=== PATIENT | female | born 1985 | race Caucasian/White ===

== ENCOUNTER 2021-03-28 01:46 | Day surgery (SDC) | payer OTHER, BC, SELFPAY ==
[2021-03-20 15:55] VITALS: BMI 28.4
[2021-03-28 10:02] VITALS: BP 109/74; PULSE 65; RESP 18; TEMP 36.7; O2SAT 99; BMI 28.8
[2021-03-28] MEDS: LACTATED RINGERS 1,000 ML 150 ML IV CONT (10:08)
--- NOTE | 2021-03-28 10:19 | WPDGICN ---
GI Consult Note Consult date/time: 03/28/21 10:19 HPI: Reason for visit is colonoscopy. This very pleasant lady seen in consultation at the request of the Primary care. Family history of colorectal cancer. Recommendation: Colonoscopy. History: This very pleasant lady has a family history of colorectal cancer. The patient's mother had colorectal cancer at age 48 and a maternal aunt had colorectal cancer. The age is unknown. She is here for screening colonoscopy. Her GI review systems unremarkable. Physical examination: General: very pleasant patient in no acute distress. HEENT: Head was normocephalic sclerae is clear mouth without masses neck was supple. Heart: Rate rhythm regular without S3 or S4. Lungs: CTA. Abdomen: Soft with no guarding or rigidity. Bowel sounds were active. Neurologic: Cranial nerves 2 through 12 intact. No focal defects. No clonus. Musculoskeletal system: Revealed no joint tenderness or swelling no muscle atrophy. Extremities: Reveal no significant edema. Skin: Warm and dry with normal turgor. Mental status: intact. Patient is alert and oriented. Review of Systems Review of Systems: All systems reviewed & are unremarkable except as noted in HPI and below PMFSH Social History Social History Years smoked: 20 Smoking status: Current every day smoker Alcohol intake: current Alcohol use details: rarely Living arrangements: with family Spiritual care concerns: No Meds Home Medications and Allergies Home Medications Medication Instructions Recorded Confirmed Type No Home Medications 03/20/21 03/20/21 History Allergies Allergy/AdvReac Type Severity Reaction Status Date / Time No Known Allergies Allergy Verified 03/28/21 10:02 Vital Signs Vital Signs - 24 hr 03/28/21 10:02 Temperature 36.7 C Pulse Rate 65 Respiratory Rate 18 Blood Pressure 109/74 Pulse Oximetry 99
--- NOTE | 2021-03-28 10:37 | WPDANESEPPF ---
Anes - Initial Pre Proc Eval Procedure: Operation Date: 03/28/21 10:30 Proposed Procedures p Screening Colonoscopy - Neri Michaels DO Date/Time: 03/28/21 10:37 Surgeon: Neri Michaels DO Pre Op Diagnosis: family hx colorectal CA Patient Data Age: 35 Gender: F Height: 5 ft 6 in Weight: 81 kg Last Vital Signs Temp 98.1 F 03/28/21 10:02 Pulse 65 03/28/21 10:02 Resp 18 03/28/21 10:02 BP 109/74 03/28/21 10:02 Pulse Ox 99 03/28/21 10:02 Allergies Allergy/AdvReac Type Severity Reaction Status Date / Time No Known Allergies Allergy Verified 03/28/21 10:02 Home Medications Medication Instructions Recorded Confirmed Type No Home Medications 03/20/21 03/20/21 History Patient hx anesthesia problems: none Family hx anesthesia problems: none PMFSH Past Medical History Medical History (Updated 03/28/21 @ 10:36 by Davon Young MD) Anemia Social History Social History Years smoked: 20 Smoking status: Current every day smoker Alcohol intake: current Alcohol use details: rarely Living arrangements: with family Spiritual care concerns: No Anes - Eval Final PreProcedure Day of Procedure 03/28/21 10:37 Patient weight: overweight Heart: regular rate and rhythm Lungs: clear to auscultation Airway: Mallampati scale class II Neurological: alert and oriented Last oral intake: >/= 8 hours ASA classification: II Emergent: no Anesthetic plan: proceed Anesthesia type and monitoring: general GIVS and standard monitoring Informed Consent: The patient's anesthetic plan and its attendant risks and benefits were discussed with the patient/family/POA. Questions were solicited and answers provided to the satisfaction of the patient/family/POA.
[2021-03-28 12:12] VITALS: BP 92/50; PULSE 57; RESP 20; O2SAT 100
[2021-03-28 12:22] VITALS: BP 93/50; PULSE 57; RESP 18; O2SAT 100
[2021-03-28 12:32] VITALS: BP 103/69; PULSE 57; RESP 18; O2SAT 100
== END 2021-03-28 12:41 | disposition home or self-care (01) ==
PROVIDERS: PCP Physician Assistant; Visit Provider Internal Medicine Gastroenterology
PROC: 0DJD8ZZ Inspection of Lower Intestinal Tract, Via Natural or Artificial Opening Endoscopic (ICD-10-PCS; CPT 45378; principal; 2021-03-28 10:30)
DX: Z12.11 Encounter for screening for malignant neoplasm of colon (principal); Z80.0 Family history of malignant neoplasm of digestive organs; F17.200 Nicotine dependence, unspecified, uncomplicated
CPT/HCPCS: 45378; J2704; J7120